=== PATIENT | female | born 1955 | race Caucasian/White ===

== ENCOUNTER 2024-12-11 15:15 | Inpatient (IN) | payer OTHER ==
[2024-12-11] MEDS ORDERED: ONDANSETRON 4 MG/2 ML VIAL ONE (16:02)
[2024-12-11] MEDS: LACTATED RINGERS SOLUTION 1000 ML INFUS.BAG IV ONE (16:30)
[2024-12-11] MEDS: ONDANSETRON 4 MG/2 ML VIAL IVPB ONE (16:30)
[2024-12-11 16:55] LABS: INR 0.95 (0.83-1.09); PROTHROMBIN TIME (PATIENT) 10.4 SEC (9.7-13.0)
[2024-12-11 16:58] LABS: ABSOLUTE IMMATURE GRANULOCYTES 0.01 x10^3/uL (0.0-0.031); ACTIVATED PTT 30.6 SECONDS (25.2-36.5); BASOPHILS # 0.03 x10^3/uL (0.01-0.08); EOSINOPHIL % 0.4 % (0.7-5.8); EOSINOPHILS # 0.02 x10^3/uL (0.04-0.36); MCHC 35.0 g/dl (32.2-35.5); MEAN CELL VOLUME 86.3 fl (79.4-94.8); MEAN PLT VOLUME 8.9 fl (9.4-12.3); MONOCYTE # 0.23 x10^3/uL (0.24-0.86); MONOCYTE % 4.9 % (4.7-12.5); RDW 14.4 % (12.4-16.4)
[2024-12-11 17:09] LABS: CO2 24.0 mmol/L (21-32); GLUCOSE,RANDOM 77.0 mg/dL (74-106)
[2024-12-11 17:11] LABS: CREATININE 0.9 mg/dL (0.55-1.3)
[2024-12-11 17:12] LABS: SGOT/AST 16.0 U/L (15-37); SGPT/ALT 22.0 U/L (13-61)
[2024-12-11 17:13] LABS: TOT PROT 7.2 g/dl (6.4-8.2)
[2024-12-11 17:14] LABS: ALK PHOS 85.0 U/L (45-117)
[2024-12-11 18:01] LABS: HCV DIAGNOSTIC IN-HOUSE W/RFLX NON-REACTIVE (NONREACTIVE); HIV INTERPRETATION NEGATIVE (NEGATIVE)
[2024-12-11 18:22] LABS: EPI CELLS 25 /uL (0-25.1); HYALINE CASTS 2 /uL (0-3.1); URINE APPEARANCE CLOUDY; URINE BACTERIA >9,000 /uL (0-1359); URINE BILIRUBIN NEGATIVE (NEGATIVE); URINE COLOR YELLOW; URINE GLUCOSE (UA) NEGATIVE (NEGATIVE); URINE KETONE 2+ (NEGATIVE); URINE LEUK ESTERASE 1+ (NEGATIVE); URINE NITRITE NEGATIVE (NEGATIVE); URINE PROTEIN TRACE (NEGATIVE); URINE RBC 33 /uL (0-23.9); URINE UROBILINOGEN 0.2 mg/dL (0.2-1.0); URINE WBC 73 /uL (0-25.8)
[2024-12-11] MEDS ORDERED: HYDROCORTISONE SOD SUCCINATE 100 MG/2 ML VIAL ONE (18:37)
[2024-12-11] MEDS ORDERED: CEFTRIAXONE 1 GM/50 ML BAG ONE (18:37)
[2024-12-11] MEDS: CEFTRIAXONE 1 GM in DEXTROSE 5%-WATER - 100 ML IVPB ONE (18:55)
[2024-12-11] MEDS: HYDROCORTISONE SOD SUCCINATE 100 MG/2 ML VIAL IVPB ONE (19:38)
[2024-12-11] MEDS ORDERED: hydrOXYzine HCL 10 MG/5 ML UNIT DOSE CUPS PO PRN (22:33)
[2024-12-12 00:03] LABS: PHENCYCLIDINE,URINE NEGATIVE (NEGATIVE); URINE BARBITURATES NEGATIVE (NEGATIVE); URINE BENZODIAZEPINES NEGATIVE (NEGATIVE)
[2024-12-12 00:04] LABS: COCAINE, UR NEGATIVE (NEGATIVE); METHADONE, UR NEGATIVE (NEGATIVE); URINE AMPHETAMINES NEGATIVE (NEGATIVE)
[2024-12-12 00:12] LABS: CO2 25 mmol/L (21-32); GLUCOSE,RANDOM 88 mg/dL (74-106)
[2024-12-12 00:17] LABS: CREATININE 0.8 mg/dL (0.55-1.3)
[2024-12-12 00:22] LABS: OPIATES, URI NEGATIVE (NEGATIVE)
[2024-12-12] MEDS ORDERED: KCL 10 MEQ IVPB 10 MEQ/100 ML INFUS.BAG IVPB SCH (01:30)
[2024-12-12] MEDS: POTASSIUM CHLORIDE ORAL LIQUID 20 MEQ/15 ML PO ONE (01:45)
[2024-12-12] MEDS: ONDANSETRON 4 MG/2 ML VIAL IVPUSH PRN (06:06)
[2024-12-12 07:31] LABS: ABSOLUTE IMMATURE GRANULOCYTES 0.02 x10^3/uL (0.0-0.031); BASOPHILS # 0.01 x10^3/uL (0.01-0.08); EOSINOPHIL % 0.0 % (0.7-5.8); EOSINOPHILS # 0.00 x10^3/uL (0.04-0.36); MCHC 34.5 g/dl (32.2-35.5); MEAN CELL VOLUME 86.5 fl (79.4-94.8); MEAN PLT VOLUME 9.5 fl (9.4-12.3); MONOCYTE # 0.12 x10^3/uL (0.24-0.86); MONOCYTE % 3.2 % (4.7-12.5); RDW 14.3 % (12.4-16.4)
[2024-12-12] MEDS: SERTRALINE HCL 50 MG TABLET (FP) PO SCH (09:24)
[2024-12-12] MEDS: ENOXAPARIN NA (PORCINE) 40 MG/0.4 ML DISP.SYRIN SQ SCH (09:24)
[2024-12-12] MEDS: PANTOPRAZOLE 40 MG TABLET PO SCH (09:24)
[2024-12-12] MEDS: LEVOTHYROXINE SODIUM 100 MCG 5 ML VIAL IVPUSH SCH (09:24)
[2024-12-12] MEDS: HYDROCORTISONE SOD SUCCINATE 100 MG/2 ML VIAL IVPUSH SCH ×2 (09:31→14:44)
[2024-12-12] MEDS ORDERED: LEVOTHYROXINE SODIUM 100 MCG 5 ML VIAL IVPUSH SCH (10:00)
[2024-12-12 10:44] LABS: ALK PHOS 83.0 U/L (45-117); CO2 22.0 mmol/L (21-32); CREATININE 0.8 mg/dL (0.55-1.3); GLUCOSE,RANDOM 85.0 mg/dL (74-106); SGOT/AST 20.0 U/L (15-37); SGPT/ALT 18.0 U/L (13-61); TOT PROT 6.7 g/dl (6.4-8.2)
[2024-12-12 13:28] VITALS: BMI 18.5
[2024-12-12] MEDS: CEFTRIAXONE 1 GM in DEXTROSE 5%-WATER - 50 ML IVPB SCH (17:50)
[2024-12-12] MEDS: traZODone HCL 50 MG TABLET (FP) PO SCH (21:23)
[2024-12-13 08:10] LABS: ABSOLUTE IMMATURE GRANULOCYTES 0.01 x10^3/uL (0.0-0.031); BASOPHILS # 0.01 x10^3/uL (0.01-0.08); EOSINOPHIL % 0.0 % (0.7-5.8); EOSINOPHILS # 0.00 x10^3/uL (0.04-0.36); MCHC 34.7 g/dl (32.2-35.5); MEAN CELL VOLUME 85.9 fl (79.4-94.8); MEAN PLT VOLUME 9.5 fl (9.4-12.3); MONOCYTE # 0.14 x10^3/uL (0.24-0.86); MONOCYTE % 4.2 % (4.7-12.5); RDW 14.3 % (12.4-16.4)
[2024-12-13 08:21] LABS: CO2 25.0 mmol/L (21-32); GLUCOSE,RANDOM 107.0 mg/dL (74-106)
[2024-12-13 08:25] LABS: CREATININE 0.8 mg/dL (0.55-1.3)
[2024-12-14 07:24] LABS: ABSOLUTE IMMATURE GRANULOCYTES 0.02 x10^3/uL (0.0-0.031); BASOPHILS # 0.00 x10^3/uL (0.01-0.08); EOSINOPHIL % 0.0 % (0.7-5.8); EOSINOPHILS # 0.00 x10^3/uL (0.04-0.36); MCHC 35.4 g/dl (32.2-35.5); MEAN CELL VOLUME 85.9 fl (79.4-94.8); MEAN PLT VOLUME 9.8 fl (9.4-12.3); MONOCYTE # 0.17 x10^3/uL (0.24-0.86); MONOCYTE % 3.7 % (4.7-12.5); RDW 14.2 % (12.4-16.4)
[2024-12-14 07:25] LABS: IMMATURE PLATELET FRACTION # 2.80 x10^3/uL
[2024-12-14 07:45] LABS: CO2 28.0 mmol/L (21-32); GLUCOSE,RANDOM 115.0 mg/dL (74-106)
[2024-12-14 07:48] LABS: SGOT/AST 15.0 U/L (15-37); SGPT/ALT 19.0 U/L (13-61)
[2024-12-14 07:49] LABS: TOT PROT 6.1 g/dl (6.4-8.2)
[2024-12-14 07:51] LABS: ALK PHOS 71.0 U/L (45-117); CREATININE 0.8 mg/dL (0.55-1.3)
[2024-12-14] MEDS: POTASSIUM CHLORIDE TABS 20 MEQ TABLET.ER (FP) PO ONE (10:41)
[2024-12-14] MEDS: HYDROCORTISONE SOD SUCCINATE 100 MG/2 ML VIAL IVPB SCH ×2 (11:29→21:32)
[2024-12-14] MEDS: LEVOTHYROXINE SODIUM 100 MCG 5 ML VIAL IVPUSH ONE (22:06)
[2024-12-14] MEDS ORDERED: ONDANSETRON 4 MG/2 ML VIAL IVPUSH PRN (23:25)
[2024-12-15] MEDS: LEVOTHYROXINE NA 100 MCG TABLET (FP) PO SCH (06:55)
[2024-12-15] MEDS ORDERED: LEVOTHYROXINE NA 100 MCG TABLET (FP) PO SCH (07:00)
[2024-12-15 08:39] LABS: RDW 14.6 % (12.4-16.4)
[2024-12-15 08:40] LABS: IMMATURE PLATELET FRACTION # 3.00 x10^3/uL; MCHC 34.3 g/dl (32.2-35.5); MEAN CELL VOLUME 88.0 fl (79.4-94.8); MEAN PLT VOLUME 9.2 fl (9.4-12.3)
[2024-12-15 10:02] LABS: CO2 27.0 mmol/L (21-32); CREATININE 0.8 mg/dL (0.55-1.3); GLUCOSE,RANDOM 115.0 mg/dL (74-106)
[2024-12-15] MEDS: CEFTRIAXONE 1 GM in DEXTROSE 5%-WATER - 50 ML IVPB SCH (10:14)
[2024-12-15] MEDS: ENOXAPARIN NA (PORCINE) 40 MG/0.4 ML DISP.SYRIN SQ SCH (10:14)
[2024-12-15] MEDS: PANTOPRAZOLE 40 MG TABLET PO SCH (10:15)
[2024-12-15] MEDS: SERTRALINE HCL 50 MG TABLET (FP) PO SCH (10:15)
[2024-12-15] MEDS: traZODone HCL 50 MG TABLET (FP) PO SCH (21:56)
[2024-12-16 09:09] LABS: EOSINOPHIL % 0.0 % (0.7-5.8); EOSINOPHILS # 0.00 x10^3/uL (0.04-0.36); MCHC 34.2 g/dl (32.2-35.5); MONOCYTE # 0.25 x10^3/uL (0.24-0.86); RDW 14.6 % (12.4-16.4)
[2024-12-16 09:11] LABS: ABSOLUTE IMMATURE GRANULOCYTES 0.03 x10^3/uL (0.0-0.031); BASOPHILS # 0.00 x10^3/uL (0.01-0.08); IMMATURE PLATELET FRACTION # 2.50 x10^3/uL; MEAN CELL VOLUME 87.4 fl (79.4-94.8); MEAN PLT VOLUME 9.7 fl (9.4-12.3); MONOCYTE % 4.4 % (4.7-12.5)
[2024-12-16 10:06] LABS: CO2 29.0 mmol/L (21-32); CREATININE 0.8 mg/dL (0.55-1.3); GLUCOSE,RANDOM 100.0 mg/dL (74-106)
[2024-12-16 10:07] LABS: SGPT/ALT 28.0 U/L (13-61); TOT PROT 6.3 g/dl (6.4-8.2)
[2024-12-16 10:08] LABS: ALK PHOS 69.0 U/L (45-117)
[2024-12-16 10:09] LABS: SGOT/AST 23.0 U/L (15-37)
[2024-12-17 08:42] LABS: BASOPHILS # 0.01 x10^3/uL (0.01-0.08); RDW 14.8 % (12.4-16.4)
[2024-12-17 08:44] LABS: ABSOLUTE IMMATURE GRANULOCYTES 0.08 x10^3/uL (0.0-0.031); EOSINOPHIL % 0.2 % (0.7-5.8); EOSINOPHILS # 0.01 x10^3/uL (0.04-0.36); IMMATURE PLATELET FRACTION # 4.10 x10^3/uL; MCHC 34.3 g/dl (32.2-35.5); MEAN CELL VOLUME 89.3 fl (79.4-94.8); MEAN PLT VOLUME 9.8 fl (9.4-12.3); MONOCYTE # 0.33 x10^3/uL (0.24-0.86); MONOCYTE % 5.0 % (4.7-12.5)
[2024-12-17 09:21] LABS: CO2 31.0 mmol/L (21-32); GLUCOSE,RANDOM 100.0 mg/dL (74-106)
[2024-12-17 09:23] LABS: CREATININE 0.8 mg/dL (0.55-1.3)
[2024-12-17 09:24] LABS: SGPT/ALT 29.0 U/L (13-61)
[2024-12-17 09:25] LABS: SGOT/AST 25.0 U/L (15-37); TOT PROT 6.3 g/dl (6.4-8.2)
[2024-12-17 09:26] LABS: ALK PHOS 67.0 U/L (45-117)
[2024-12-17] MEDS: HYDROCORTISONE SOD SUCCINATE 100 MG/2 ML VIAL IVPB SCH (10:58)
[2024-12-18 08:51] LABS: BASOPHILS # 0.02 x10^3/uL (0.01-0.08)
[2024-12-18 08:53] LABS: ABSOLUTE IMMATURE GRANULOCYTES 0.14 x10^3/uL (0.0-0.031); EOSINOPHIL % 0.2 % (0.7-5.8); EOSINOPHILS # 0.02 x10^3/uL (0.04-0.36); IMMATURE PLATELET FRACTION # 4.70 x10^3/uL; MCHC 34.4 g/dl (32.2-35.5); MEAN CELL VOLUME 88.0 fl (79.4-94.8); MEAN PLT VOLUME 10.5 fl (9.4-12.3); MONOCYTE # 0.51 x10^3/uL (0.24-0.86); MONOCYTE % 6.3 % (4.7-12.5); RDW 14.7 % (12.4-16.4)
[2024-12-18 09:16] LABS: CO2 31.0 mmol/L (21-32); GLUCOSE,RANDOM 86.0 mg/dL (74-106)
[2024-12-18 09:19] LABS: CREATININE 0.8 mg/dL (0.55-1.3); SGOT/AST 21.0 U/L (15-37); SGPT/ALT 32.0 U/L (13-61)
[2024-12-18 09:20] LABS: TOT PROT 5.8 g/dl (6.4-8.2)
[2024-12-18 09:22] LABS: ALK PHOS 63.0 U/L (45-117)
[2024-12-18] MEDS: POTASSIUM CHLORIDE ORAL LIQUID 20 MEQ/15 ML PO SCH (14:13)
[2024-12-19 15:28] VITALS: BP 92/59; PULSE 88; RESP 18; TEMP 97.3
[2024-12-20] MEDS ORDERED: DEXAMETHASONE 4 MG TABLET (FP) PO SCH (10:00)
== END 2024-12-19 17:26 | DRG 80 ==
LOC: JER 15:15 → JERBED 19:15 → J4W 21:54 → J8W 12-14 23:30
PROVIDERS: ADMIT Internal Medicine; ATTEND Nurse Practitioner Acute Care
DX: E03.5 Myxedema coma (principal); E43 Unspecified severe protein-calorie malnutrition; E87.1 Hypo-osmolality and hyponatremia; N39.0 Urinary tract infection, site not specified; Z68.1 Body mass index [BMI] 19.9 or less, adult; K62.5 Hemorrhage of anus and rectum; E03.9 Hypothyroidism, unspecified; F17.210 Nicotine dependence, cigarettes, uncomplicated; E87.6 Hypokalemia; F32.A Depression, unspecified; R00.1 Bradycardia, unspecified; F12.90 Cannabis use, unspecified, uncomplicated
CPT/HCPCS: 36415; 71045-TC-FY; 80048; 80053; 80307; 81003; 82010; 82533; 82607; 82962; 83036; 83735; 83930; 83935; 84100; 84300; 84439; 84443; 84484; 85025; 85027; 85610; 85730; 86376; 86800; 86803; 87081; 87086; 87389; 87635; 87637-QW; 93005; 93010; 97116-GP; 97162-GP; 99285-25